=== PATIENT | male | born 1975 | race African-American/Black ===

== ENCOUNTER → 2016-11-24 | Outpatient (CLI) | payer OTHER ==
[2016-11-24 18:07] LABS: ANION GAP 6 MEQ/L (8-16); BLOOD UREA NITROGEN 14 MG/DL (7-18); CALCIUM LEVEL 8.7 MG/DL (8.5-10.1); CARBON DIOXIDE LEVEL 32 MEQ/L (21-32); CHLORIDE LEVEL 102 MEQ/L (98-107); GLOMERULAR FILTRATION RATE > 60.0 (>60); GLUCOSE, FASTING 96 MG/DL (70-105); POTASSIUM SERUM 4.6 MEQ/L (3.5-5.1); SODIUM LEVEL 140 MEQ/L (136-145)
[2016-11-24 19:10] LABS: INR 0.97; MEAN CORPUSCULAR HEMOGLOBIN 29.9 pg (27.0-33.0); MEAN CORPUSCULAR HGB CONC 32.7 g/dl (32.0-36.5); MEAN CORPUSCULAR VOLUME 91.5 fl (80.0-96.0); RED CELL DISTRIBUTION WIDTH 13.6 % (11.5-14.5); WHITE BLOOD COUNT 5.4 K/mm3 (4.0-10.0)
== END ==
LOC: M SMT 15:56
PROVIDERS: ATTEND Urology
DX: N35.9 Urethral stricture, unspecified (principal)
CPT/HCPCS: 36415; 80048; 85027; 85610; 85730; G0463

== ENCOUNTER → 2016-11-26 | Outpatient (REF) | payer OTHER | LOC: M SMT 16:55 | PROVIDERS: ATTEND Urology | DX: N35.9 Urethral stricture, unspecified (principal) ==

== ENCOUNTER → 2017-01-25 | Day surgery (SDC) | payer OTHER ==
[~2017-01-25] VITALS: Ht 180.3 cm; Wt 90.7 kg
[~2017-01-25] MED LIST: BUPIVACAINE/EPIN 0.25% 30 ML VIAL As Ordered ONE; GLYCOPYRROLATE INJ 0.2 MG/ML 2 ML VIAL As Ordered ONE; HYDROmorphone HCL 1 MG/ML SYRINGE (J1170) IV PRN; KETOROLAC 30 MG/ML VIAL (J1885) IV PRN; KETOROLAC 60 MG/2 ML VIAL (J1885) As Ordered ONE; LR 1,000 ML IV ONE; LR 1,000 ML IV SCH; METOCLOPRAMIDE INJ 10MG/2ML VIAL (J2765) IV PRN; MIDAZOLAM INJ 2 MG/2 ML VIAL (J2250) As Ordered ONE; MORPHINE 2 MG/ML 1ML SYRINGE IV PRN; NEOSTIGMINE 1MG/ML 5 ML SYRINGE (J2710) As Ordered ONE; NORCO, ANEXSIA 5/325MG TABLET (HYDROcodone/ACETAMINOPHEN) PO PRN; ONDANSETRON 4MG/2ML VIAL (J2405) As Ordered ONE; ONDANSETRON 4MG/2ML VIAL (J2405) IV PRN; PERCOCET 5MG/325MG TAB PO PRN; PHENYLephrine HCL 500 MCG/5 ML (100MCG/ML) SYRINGE (J2370) As Ordered ONE; PROPOFOL 200 MG/20 ML VIAL As Ordered ONE; ROCURONIUM BROMIDE 50 MG/5 ML VIAL As Ordered ONE; ceFAZolin SOD 1 GM in D5W MINI-BAG PLUS 50 ML IV ONE; diphenhydrAMINE INJ 50MG/ML VIAL (J1200) As Ordered ONE; diphenhydrAMINE INJ 50MG/ML VIAL (J1200) IV ONE; ePHEDrine SULFATE 25 MG/5 ML(5MG/ML) SYRINGE As Ordered ONE; fentaNYL 100 MCG/2 ML INJECTION (J3010) As Ordered ONE; fentaNYL 100 MCG/2 ML INJECTION (J3010) IV PRN
[2017-01-25 14:35] VITALS: BP 116/75
--- NOTE | 2017-02-13 06:27 | RO ---
DATE OF PROCEDURE: 01/25/2017 PREOPERATIVE DIAGNOSIS: Right inguinal hernia. POSTOPERATIVE DIAGNOSIS: Right inguinal hernia. PROCEDURE: Laparoscopic right inguinal hernia repair with 3DMax mesh (TEPP). SURGEON: Georges Brown MD RESIDENT INSPECTOR: ANESTHESIA: General endotracheal anesthesia. ESTIMATED BLOOD LOSS: Minimal. FLUIDS: Crystalloid. DESCRIPTION OF PROCEDURE: The patient was brought to the operating room, was given general anesthesia. After adequate anesthesia and preoperative antibiotics were given, the patient was prepped and draped in the usual sterile fashion. Next, a periumbilical incision was made with skin knife. Electrocautery was used cut through dermis, underlying subcutaneous tissue down to the anterior rectus muscle fascia, which was opened longitudinally with electrocautery. Rectus muscle was retracted laterally and anteriorly and the patient was placed in a Trendelenburg position. A balloon dissector was placed in the preperitoneal space and under direct visualization two 5 mm trocars were placed in the infraumbilical site after a stationary balloon was placed at the umbilicus in the preperitoneal space insufflated to 15 mm pressure. Next, the right inguinal area was dissected out in the following manner. There was a large inguinal hernia on the right-hand side with a very thickened peritoneum extending its way all the way through the inguinal canal. First, loose areolar tissue on the posterior aspect of the pubis and Garrick's was taken down with hook cautery. Some minimal loose areolar tissue was taken down in the valley between the bladder and the vessels, and then dissection continued from lateral to medial to where the cord structures were in the internal ring. Once these were identified and the peritoneum was were readily identified, the peritoneum was grasped and circumferentially this was dissected off surrounding structures. Once this was dissected off surrounding structures, this was dissected distally into the inguinal canal. There was some thickened adhesions throughout this area that were eventually taken down quite nicely with the hook cautery. The vessels in the vas were readily identified and were saved during the dissection. The hernia was eventually removed out of the inguinal canal and mobilized off the cord structures itself and mobilized off the vas to where it dove deep into the pelvis. Once the valley between the bladder and the vessels was created nicely as well, a 3DMax mesh was placed in the right inguinal area, tacked at Garrick's on the superior aspect of the pubis and laterally on the tail. There was some redundancy to the mesh itself and thus, it was tacked anteriorly along the rectus muscle as well. The preperitoneal space was desufflated under direct visualization showing the hernia sac in the preperitoneal space, but no other significant abnormality was appreciated. The trocars removed all under direct visualization. #0 Vicryl was used to close the fascia at the umbilicus and all incisions were closed with #4-0 Vicryl. Steri-Strips and dry sterile dressing was applied. The patient was awakened, extubated, brought to the recovery room awake, alert, hemodynamically stable. Sponge and needle counts correct times two.
== END | disposition home or self-care (01) ==
LOC: M SDC 07:39
PROVIDERS: ATTEND Surgery
DX: K40.30 Unilateral inguinal hernia, with obstruction, without gangrene, not specified as recurrent (principal); T88.59XD Other complications of anesthesia, subsequent encounter; M54.9 Dorsalgia, unspecified; R29.898 Other symptoms and signs involving the musculoskeletal system; Z87.820 Personal history of traumatic brain injury; R51 Headache; R06.83 Snoring; Z88.5 Allergy status to narcotic agent; Z91.018 Allergy to other foods
CPT/HCPCS: 49650; C1781; J0690; J1200; J1885; J2250; J2370; J2405; J2710; J3010

== ENCOUNTER → 2017-02-01 | Outpatient (REF) | payer OTHER | LOC: M SMT 12:54 | PROVIDERS: ATTEND Nurse Practitioner Family | DX: R35.0 Frequency of micturition (principal) | CPT/HCPCS: 81001; 87086; G0463 ==